=== PATIENT | female | born 1995 | race Hispanic/Latino ===

== ENCOUNTER 2018-11-15 01:05 | Inpatient (IN) | payer OTHER ==
[~2018-11-15] VITALS: Ht 157.5 cm; Wt 111.6 kg
[2018-11-15 01:38] LABS: BASOPHILS % (AUTO) 1.7 % (0.0-5.0); EOSINOPHILS % (AUTO) 0.5 % (0.0-8.0); HEMATOCRIT 32.9 % (36-48); LYMPHOCYTES % (AUTO) 18.2 % (21.0-51.0); MEAN CORPUSCULAR HEMOGLOBIN 24.5 pg (27.0-33.0); MEAN CORPUSCULAR HGB CONC 32.1 g/dL (32.0-36.0); MEAN CORPUSCULAR VOLUME 76.3 fL (79-99); MONOCYTES % (AUTO) 3.7 % (3.0-13.0); NEUTROPHILS % (AUTO) 75.9 % (40.0-77.0); NUCLEATED RED BLOOD CELLS 0.1 % (0.0-0.19); PLATELET COUNT (AUTO) 211 K/uL (130-400); RED BLOOD CELL COUNT(AUTO) 4.31 MIL/uL (4.00-5.50); RED CELL DISTRIBUTION WIDTH 16.5 % (11.0-15.5); WHITE BLOOD COUNT (AUTO) 11.1 K/uL (4.8-10.8)
[2018-11-15 01:43] LABS: APPEARANCE,URINE SL CLOUDY (CLEAR); BILIRUBIN,URINE SMALL (NEGATIVE); COLOR,URINE YELLOW (YELLOW); CREATININE 0.9 mg/dL (0.5-1.5); GLUCOSE, URINE (UA) NEGATIVE (NEGATIVE); HCG,QUAL RESULT POSITIVE (NEGATIVE); KETONES,URINE 5 mg/dL (NEGATIVE); LEUKOCYTE ESTERASE ,URINE SMALL (NEGATIVE); NITRATE,URINE NEGATIVE (NEGATIVE); OCCULT BLOOD,URINE MODERATE (NEGATIVE); POTASSIUM 4.1 mmol/L (3.5-5.1); PROTEIN,URINE >=300 mg/dL (NEGATIVE)
[2018-11-15] MEDS ORDERED: LACTATED RINGERS 1000ML IV PRN (01:45)
[2018-11-15 01:48] LABS: ALBUMIN 2.2 g/dL (3.5-5.0); BILIRUBIN,TOTAL 0.4 mg/dL (0.2-1.0); TOTAL PROTEIN, SERUM 6.4 g/dL (6.0-8.3)
[2018-11-15 01:57] LABS: BACTERIA,URINE Few /HPF (None Seen); WBC,URINE 51-100 /HPF (0-1)
[2018-11-15 01:59] LABS: AMPHET/METH SCREEN,URINE NEGATIVE (NEGATIVE); BARBITURATE SCREEN, URINE NEGATIVE (NEGATIVE); BENZODIAZEPINES SCREEN,URINE NEGATIVE (NEGATIVE); CANNABINOID SCREEN,URINE NEGATIVE (NEGATIVE); COCAINE SCREEN,URINE NEGATIVE (NEGATIVE); OPIATE SCREEN,URINE NEGATIVE (NEGATIVE); PHENCYCLIDINE SCREEN,URINE NEGATIVE (NEGATIVE)
[2018-11-15 02:00] VITALS: BP 187/107
[2018-11-15] MEDS ORDERED: LACTATED RINGERS 1000ML 1,000 ML IV SCH ×2 (02:03→09:39)
[2018-11-15] MEDS ORDERED: LACTATED RINGERS 1000ML 1,000 ML IV PRN (02:03)
[2018-11-15] MEDS ORDERED: AMPICILLIN 2GM+NS 100ML 100 ML IV ONE (02:10)
[2018-11-15] MEDS ORDERED: MAGNESIUM 4GM PREMIX 100ML 100 ML IV ONE (02:10)
[2018-11-15] MEDS ORDERED: MAGNESIUM SULFATE 1,000 ML IV ONE (02:11)
[2018-11-15] MEDS ORDERED: LABETALOL HCL 5 MG/ML 20ML VIAL IV ONE ×3 (02:11→11:12)
[2018-11-15] MEDS ORDERED: AMPICILLIN 2GM+NS 100ML 100 ML IV SCH (02:15)
[2018-11-15] MEDS ORDERED: CALCIUM GLUCONATE 1 GM/10 ML VIAL IVP PRN ×2 (02:15→09:45)
[2018-11-15] MEDS ORDERED: LABETALOL HCL 5 MG/ML 20ML VIAL IV SCH (02:15)
[2018-11-15] MEDS ORDERED: OXYTOCIN-LR 20 UNITS/1000 ML 1,000 ML IV SCH (02:15)
[2018-11-15] MEDS ORDERED: MAGNESIUM 4GM PREMIX 100ML 100 ML IV PRN ×2 (02:15→09:45)
[2018-11-15] MEDS ORDERED: LABETALOL HCL 5 MG/ML 20ML VIAL IV PRN ×2 (02:20→06:00)
[2018-11-15] MEDS ORDERED: OXYTOCIN-LR 20 UNITS/1000 ML 1,000 ML IV ONE (02:23)
[2018-11-15] MEDS ORDERED: MAGNESIUM SULFATE 1,000 ML IV SCH (02:45)
[2018-11-15 02:51] LABS: URIC ACID 5.5 mg/dL (2.6-7.2)
[2018-11-15 04:05] LABS: INR 0.89 (0.85-1.15); PARTIAL THROMBOPLASTIN TIME 28.1 SEC (26.3-35.5); PROTHROMBIN TIME 9.4 SEC (9.6-11.6)
[2018-11-15] MEDS ORDERED: AMPICILLIN 1GM+NS 50ML 50 ML IV SCH (06:15)
[2018-11-15 07:31] LABS: RAPID PLASMA REAGIN NONREACTIVE (NONREACTIVE)
[2018-11-15] MEDS ORDERED: LIDOCAINE HCL 1% 20 ML VIAL ONE (07:36)
[2018-11-15] MEDS ORDERED: ACETAMINOPHEN EXTRA STRENGTH 500 MG TABLET PO SCH (08:15)
[2018-11-15] MEDS ORDERED: MISOPROSTOL 200 MCG TABLET VG SCH (09:10)
[2018-11-15] MEDS ORDERED: CARBOPROST TROMETHAMINE 250 MCG/ML AMP IM SCH (09:10)
[2018-11-15] MEDS ORDERED: MISOPROSTOL 200 MCG TABLET ONE (09:11)
[2018-11-15] MEDS ORDERED: CARBOPROST TROMETHAMINE 250 MCG/ML AMP IM ONE (09:12)
[2018-11-15] MEDS ORDERED: CEFAZOLIN SODIUM 1 GM VIAL ONE ×2 (09:20→09:27)
[2018-11-15] MEDS ORDERED: IBUPROFEN 800 MG TAB ONE (09:21)
[2018-11-15] MEDS ORDERED: IBUPROFEN 800 MG TAB PO PRN (09:45)
[2018-11-15] MEDS ORDERED: WITCH HAZEL 1 PAD TP PRN (09:45)
[2018-11-15] MEDS ORDERED: DIPH,PERTUSS(ACELL),TET VAC/PF 0.5 ML VIAL IM PRN (09:45)
[2018-11-15] MEDS ORDERED: BENZOCAINE/LANOLIN/ALOE VERA 60 ML AEROSOL TP PRN (09:45)
[2018-11-15] MEDS ORDERED: MEASLES/MUMPS/RUBELLA VACCINE, LIVE 0.5 ML/VIAL SQ PRN (09:45)
[2018-11-15 10:29] LABS: BASOPHILS % (AUTO) 0.4 % (0.0-5.0); EOSINOPHILS % (AUTO) 0.1 % (0.0-8.0); HEMATOCRIT 27.7 % (36-48); LYMPHOCYTES % (AUTO) 12.4 % (21.0-51.0); MEAN CORPUSCULAR HGB CONC 31.1 g/dL (32.0-36.0); MEAN CORPUSCULAR VOLUME 77.2 fL (79-99); MONOCYTES % (AUTO) 4.4 % (3.0-13.0); NEUTROPHILS % (AUTO) 82.7 % (40.0-77.0); PLATELET COUNT (AUTO) 179 K/uL (130-400); RED BLOOD CELL COUNT(AUTO) 3.58 MIL/uL (4.00-5.50); RED CELL DISTRIBUTION WIDTH 16.4 % (11.0-15.5); WHITE BLOOD COUNT (AUTO) 13.6 K/uL (4.8-10.8)
[2018-11-15] MEDS: CEFAZOLIN SODIUM 1 GM VIAL IVP SCH ×2 (11:20→19:48)
--- NOTE | 2018-11-15 12:18 | NUR ---
CPS Bruce called local CPS office. Pt has no open case or hx with CPS
--- NOTE | 2018-11-15 12:48 | NUR ---
EMOTIONAL SUPPORT Sw notified by nursery that baby was being intubated. Sw visited with pt who states she is and they have 5 kids, ages 5,4,3,2, and NB. Pt states that this is second time that she was not aware she was until delivery. Same thing happened with her 2nd child. Pt states that she is very active with her kids and in home and never felt symptoms. Pt reports her friend was here with her for delivery and her mother is caring for her kids. Pt states works at [employer] in [place] and her mother lives in [place]. Pt denies need for assistance at this time. Sw to follow and assist as needed
[2018-11-15] MEDS: ACETAMINOPHEN 325 MG TAB PO PRN ×2 (15:45→20:44)
[2018-11-15] MEDS ORDERED: LABETALOL HCL 200 MG TABLET PO SCH (18:00)
[2018-11-15] MEDS ORDERED: DOCUSATE SODIUM 100 MG CAP PO SCH (21:00)
[2018-11-16 01:22] LABS: BASOPHILS % (AUTO) 0.5 % (0.0-5.0); EOSINOPHILS % (AUTO) 0.3 % (0.0-8.0); LYMPHOCYTES % (AUTO) 16.4 % (21.0-51.0); MEAN CORPUSCULAR HEMOGLOBIN 24.1 pg (27.0-33.0); MEAN CORPUSCULAR HGB CONC 31.4 g/dL (32.0-36.0); MEAN CORPUSCULAR VOLUME 76.7 fL (79-99); NEUTROPHILS % (AUTO) 77.8 % (40.0-77.0); PLATELET COUNT (AUTO) 200 K/uL (130-400); RED BLOOD CELL COUNT(AUTO) 2.62 MIL/uL (4.00-5.50); RED CELL DISTRIBUTION WIDTH 16.2 % (11.0-15.5); WHITE BLOOD COUNT (AUTO) 12.7 K/uL (4.8-10.8)
[2018-11-16 01:29] LABS: HEMATOCRIT 20.1 % (36-48)
[2018-11-16] MEDS: CEFAZOLIN SODIUM 1 GM VIAL IVP SCH (05:45)
[2018-11-16 08:20] LABS: HEPATITIS Bs ANTIGEN SCREEN P Negative (Negative)
[2018-11-16 09:18] LABS: HEMATOCRIT 24.8 % (36-48); MEAN CORPUSCULAR HEMOGLOBIN 25.4 pg (27.0-33.0); MEAN CORPUSCULAR VOLUME 79.4 fL (79-99); NUCLEATED RED BLOOD CELLS 0.1 % (0.0-0.19); PLATELET COUNT (AUTO) 183 K/uL (130-400); RED BLOOD CELL COUNT(AUTO) 3.12 MIL/uL (4.00-5.50); RED CELL DISTRIBUTION WIDTH 17.2 % (11.0-15.5); WHITE BLOOD COUNT (AUTO) 11.6 K/uL (4.8-10.8)
--- NOTE | 2018-11-16 10:12 | NUR ---
ASSESSMENT: RECEIVED FROM L&D VIA W/C TO 123, POST VAG DELIVERY WAS ON MAG SULFATE FOR HIGH B/P'S. ASSISTED TO BED AND EXPLAINED POC, UNDERSTANDING VERBALIZED, CALL DARLING AT HER SIDE. DENIES C/O HEADACHE, BLURRED VISION OR EPIGASTRIC PAIN. NOTED 1+ EDEMA TO JULIO FEET, REFLEXES 1+. BABY IN NBICU AT [facility]. PT STATES WANTS TO BREAST AND BOTTLE. FAMILY WILL BRING BREAST PUMP FROM HOME AND INSTRUCTED ON MANUAL MILK EXPRESSION AND RETURNED DEMONSTRATION.
[2018-11-16 10:20] VITALS: BP 137/74
[2018-11-16 11:39] VITALS: BP 145/94
--- NOTE | 2018-11-16 13:20 | NUR ---
ACTIVITY: UP IN CHAIR VISITING WITH FAMILY.
--- NOTE | 2018-11-16 14:00 | NUR ---
ASSESSMENT: DR SCHMITT HERE AND REPORT GIVEN AND IN TO ASSESS PT AND DISCUSSED POC FOR DISCHARGE HOME AND PT VERBALIZES UNDERSTANDING AND AGREES WITH POC.
--- NOTE | 2018-11-16 14:13 | NUR ---
f/u visit Sw visited with pt and friend. Pt states she is feeling better but not sure when she will dc, because BP is up & down. Pt states baby Kameron is improving and she hospes to see him soon. Sw offered room at [facility]. Pt declined, states she has small kids at home she needs to care for. Pt denies need for referral or intervention at this time
--- NOTE | 2018-11-16 14:20 | NUR ---
ASSESSMENT: DR Mavis OSMAN CALLED AND REPORT GIVEN ON PT STATUS, MADE AWARE DR SCHMITT HERE AND ASSESSED PT AND ORDERS TO DISCHARGE HOME AT PT'S REQUEST, PT WANTS TO GO SEE HER BABY AT [facility]. NO NEW ORDERS RECEIVED.
[2018-11-16 15:00] VITALS: BP 138/78
--- NOTE | 2018-11-16 15:07 | NUR ---
DISCHARGE: DISCHARGE INSTRUCTIONS GIVEN TO PT ON SELF CARE POST VAGINAL DELIVERY, HIGH BLOOD PRESSURE, ANEMIA, DIET TO FOLLOW. REVIEWED RX'S, TO FOLLOW UP WITH DR Mavis OSMAN ON 11/30/2018 AT 0940 AM OR SOONER IF NEEDED. UNDERSTANDING VERBALIZED AND COPIES OF ALL INSTRUCTIONS GIVEN TO PT. PT UNDERSTANDS TO CONT TO PUMP BREASTS AND TO TAKE MILK TO NBICU TO HER BABY. INSTRUCTED TO KEEP ID BRACELET ON FOR IDENTIFICATION WHEN SHE GOES TO SEE HER BABY.
--- NOTE | 2018-11-16 15:40 | NUR ---
DISCHARGE: DISCHARGED HOME VIA W/C TO PRIVATE CAR WITH FAMILY, PT PLANS TO GO TO [facility] TO SEE HER BABY.
== END 2018-11-16 15:40 | disposition home or self-care (01) | DRG 807 ==
LOC: EDH 01:05 → OBSVTOIN 01:06 → LDH 01:06 → WSH 11-16 10:15
PROVIDERS: ADMIT Obstetrics & Gynecology; ATTEND Obstetrics & Gynecology
PROC: 10E0XZZ Delivery of Products of Conception, External Approach (ICD-10-PCS; principal; 2018-11-15)
PROC: 0UQMXZZ Repair Vulva, External Approach (ICD-10-PCS; 2018-11-15)
PROC: 10907ZC Drainage of Amniotic Fluid, Therapeutic from Products of Conception, Via Natural or Artificial Opening (ICD-10-PCS; 2018-11-15)
PROC: 30233N1 Transfusion of Nonautologous Red Blood Cells into Peripheral Vein, Percutaneous Approach (ICD-10-PCS; 2018-11-15)
PROC: 3E0234Z Introduction of Serum, Toxoid and Vaccine into Muscle, Percutaneous Approach (ICD-10-PCS; 2018-11-15)
PROC: 3E0134Z Introduction of Serum, Toxoid and Vaccine into Subcutaneous Tissue, Percutaneous Approach (ICD-10-PCS; 2018-11-15)
DX: O71.82 Other specified trauma to perineum and vulva (principal); Z37.0 Single live birth; O62.2 Other uterine inertia; Z3A.38 38 weeks gestation of pregnancy; Z23 Encounter for immunization
CPT/HCPCS: 36415; 76805; 80053; 80305; 81001; 81025; 84550; 85025; 85027; 85384; 85610; 85730; 86592; 86701; 86850; 86900; 86901; 86922; 87340; 87390; A4314; G0378; J0290; J0690; J2590; J3475; J3490; P9016